=== PATIENT | female | born 1990 | race Two or more races ===

== ENCOUNTER 2016-06-03 16:52 | Emergency (ER) | payer MEDICAID ==
[~2016-06-03] VITALS: Ht 157.5 cm; Wt 68.0 kg
[2016-06-03 19:56] VITALS: BP 120/83
== END 2016-06-03 20:02 | disposition home or self-care (01) ==
LOC: ER 17:07
DX: J02.9 Acute pharyngitis, unspecified (principal)

== ENCOUNTER 2020-02-08 08:19 | Inpatient (IN) | payer MEDICAID, OTHER ==
[~2020-02-08] VITALS: Ht 157.5 cm; Wt 82.5 kg
[2020-02-08] MEDS ORDERED: MORPHINE SULFATE 4 MG/ML SYR/VIAL IV ONE (08:30)
[2020-02-08] MEDS ORDERED: SODIUM CHLORIDE 0.9% 1,000 ML IV ONE ×2 (08:30→14:30)
[2020-02-08] MEDS ORDERED: SODIUM CHLORIDE 0.9% 1,000 ML IVB ONE (08:30)
[2020-02-08] MEDS ORDERED: ONDANSETRON HCL 4 MG/2 ML VIAL IV ONE (08:30)
[2020-02-08 09:00] LABS: Basophils # (auto) 0 10 ^3/uL (0-0.2); Basophils % (auto) 0.2 % (0.0-2.0); Eosinophils # (auto) 0 10 ^3/uL (0-0.8); Hematocrit 43.8 % (36.0-46.0); Hemoglobin 14.9 g/dL (12.2-16.2); Lymphocytes # (auto) 0.6 10 ^3/uL (0.4-5.4); Lymphocytes % (auto) 3.1 % (10.0-50.0); Mean Corpuscular Hemoglobin 30.5 pg (28.0-32.0); Mean Corpuscular Volume 89.7 fL (80.0-100.0); Monocytes # (auto) 0.5 10 ^3/uL (0-1.3); Neutrophils # (auto) 16.8 10 ^3/uL (1.6-8.6); Neutrophils % (auto) 93.7 % (37.0-80.0); Platelet Count (auto) 345 10^3/uL (140-450); Red Blood Cells 4.88 10^6/uL (4.0-5.20); Red Cell Distribution Width 13.4 % (11.8-14.3)
[2020-02-08 09:15] LABS: Albumin 4.3 g/dL (3.4-5.0); Calcium 9.2 mg/dL (8.5-10.1); Potassium 3.8 mmol/L (3.5-5.1)
[2020-02-08 09:18] LABS: BUN/Creatinine Ratio 12.5; Bilirubin, Total 0.4 mg/dL (0.2-1.0); Total Protein 8.5 g/dL (6.4-8.2)
[2020-02-08 09:24] LABS: Lactic Acid w/Reflex 3.9 mmol/L (0.4-2.0)
[2020-02-08] MEDS ORDERED: cefTRIAXone 1GM/50ML D5W 50 ML IV ONE (11:30)
[2020-02-08] MEDS ORDERED: metroNIDAZOLE 500MG/100ML 100 ML IV ONE (11:30)
[2020-02-08] MEDS ORDERED: NITROGLYCERIN 0.4 MG SL TAB SL PRN ×2 (13:45→15:15)
[2020-02-08] MEDS ORDERED: MORPHINE SULF INJ 2 MG/ML SYRINGE 1ML IV PRN ×2 (13:45→15:15)
[2020-02-08] MEDS ORDERED: GOLYTELY 4L KIT PO ONE (14:15)
[2020-02-08] MEDS: SODIUM CHLORIDE 0.9% 1,000 ML IV SCH (14:30)
[2020-02-08] MEDS ORDERED: HYDROcodone-ACET 5/325MG TAB PO PRN (15:15)
[2020-02-08] MEDS ORDERED: DOCUSATE SOD 100 MG CAP PO PRN (15:15)
[2020-02-08] MEDS ORDERED: ONDANSETRON HCL 4 MG/2 ML VIAL IV PRN (15:15)
[2020-02-08] MEDS ORDERED: ACETAMINOPHEN 325 MG TAB PO PRN (15:15)
[2020-02-08] MEDS ORDERED: ALUM & MAG HYDROX-SIMETH LIQ(MAALOX) 30 ML PO PRN (15:15)
[2020-02-08] MEDS ORDERED: LORazepam 0.5 MG TAB PO PRN (15:15)
[2020-02-08 15:29] LABS: INR 1.03 (0.9-1.15)
[2020-02-08 16:30] LABS: Cholesterol 205 mg/dL (< 200); HDL Cholesterol 67 mg/dL (40-59); LDL Cholesterol 121 mg/dL (< 100); Triglycerides 76 mg/dL (< 150)
[2020-02-08] MEDS ORDERED: ERGO1CAP23 PO (16:39)
[2020-02-08] MEDS ORDERED: [UNRECOGNIZED DRUG - CODE] VG (16:39)
[2020-02-08] MEDS ORDERED: RIBO100T8 PO (16:39)
[2020-02-08] MEDS ORDERED: GABA100C9 PO (16:39)
[2020-02-08 20:32] VITALS: BP 132/87
[2020-02-08 22:00] VITALS: BP 132/87
[2020-02-08] MEDS: metroNIDAZOLE 500MG/100ML 100 ML IV SCH (22:58)
[2020-02-08] MEDS: MORPHINE SULF INJ 2 MG/ML SYRINGE 1ML IV PRN (23:03)
[2020-02-08 23:58] LABS: Urine Amorphous Crystal MOD /hpf (None Seen); Urine Bacteria NONE SEEN /hpf (None Seen); Urine Blood 1+ /uL (Negative); Urine Mucus FEW (None Seen); Urine Specific Gravity 1.033 (1.001-1.035); Urine WBC 59 /hpf (0 - 5)
[2020-02-09 00:20] LABS: Amphetamine Screen, Urine NEGATIVE (NEGATIVE); Barbiturate Scree,Urine NEGATIVE (NEGATIVE); Benzodiazephine Screen, Urine NEGATIVE (NEGATIVE); Cannabinoid Screen, Urine NEGATIVE (NEGATIVE); Cocaine Screen, Urine NEGATIVE (NEGATIVE); Opiate Scree,Urine NEGATIVE (NEGATIVE); Phencyclidine Screen, Urine NEGATIVE (NEGATIVE)
[2020-02-09] MEDS: SODIUM CHLORIDE 0.9% 1,000 ML IV SCH ×2 (02:51→17:10)
[2020-02-09] MEDS ORDERED: GOLYTELY 4L KIT PO ONE (04:00)
[2020-02-09 05:00] VITALS: BP 125/67
[2020-02-09] MEDS: metroNIDAZOLE 500MG/100ML 100 ML IV SCH ×3 (05:40→22:00)
[2020-02-09] MEDS: MORPHINE SULF INJ 2 MG/ML SYRINGE 1ML IV PRN ×2 (07:31→21:44)
[2020-02-09] MEDS ORDERED: FLUMAZENIL 0.1 MG/ML INJ 10ML MDV IV ONE (08:16)
[2020-02-09] MEDS ORDERED: LIDOCAINE VISCOUS 2% 15ML UD ONE (08:16)
[2020-02-09] MEDS ORDERED: NALOXONE HCL 0.4 MG/ML VIAL ONE (08:16)
[2020-02-09] MEDS ORDERED: SODIUM CHLORIDE LOCK 10 ML ONE (08:16)
[2020-02-09] MEDS ORDERED: diphenhdrAMINE HCL 50 MG/1 ML VL ONE (08:17)
[2020-02-09] MEDS: MIDAZOLAM HCL 5 MG/ML-1ML VIAL ONE ×3 (08:38→08:48)
[2020-02-09] MEDS: fentaNYL CITRATE 100 MCG/2 ML VL ONE ×2 (08:38→08:41)
[2020-02-09] MEDS ORDERED: MIDAZOLAM HCL 5 MG/ML-1ML VIAL ONE (08:49)
[2020-02-09] MEDS ORDERED: fentaNYL CITRATE 100 MCG/2 ML VL ONE (08:50)
[2020-02-09 09:13] VITALS: BP 104/55
[2020-02-09] MEDS ORDERED: CEFTRIAXONE SODIUM 2 GM in D5W 5% 50 ML IV SCH (10:00)
[2020-02-09 13:00] VITALS: BP 105/76
[2020-02-09] MEDS: PANTOPRAZOLE 40 MG TAB PO SCH ×2 (14:16→22:00)
[2020-02-09 17:00] VITALS: BP 106/58
[2020-02-09 20:46] VITALS: BP 114/71
== END 2020-02-10 01:54 | disposition short-term general hospital (02) | DRG 872 ==
LOC: ER 08:19 → EDBD 08:19 → TELE 08:20 → TELE-WESTW 20:00
PROVIDERS: ADMIT Hospitalist; ATTEND Internal Medicine Nephrology
PROC: 0DB68ZX Excision of Stomach, Via Natural or Artificial Opening Endoscopic, Diagnostic (ICD-10-PCS; principal; 2020-02-09 08:35)
PROC: 0DBM8ZX Excision of Descending Colon, Via Natural or Artificial Opening Endoscopic, Diagnostic (ICD-10-PCS; 2020-02-09 08:35)
DX: A41.9 Sepsis, unspecified organism (principal); E86.0 Dehydration; K29.70 Gastritis, unspecified, without bleeding; R65.20 Severe sepsis without septic shock; E66.9 Obesity, unspecified; F12.90 Cannabis use, unspecified, uncomplicated; K52.9 Noninfective gastroenteritis and colitis, unspecified; Z82.49 Family history of ischemic heart disease and other diseases of the circulatory system; Z68.33 Body mass index [BMI] 33.0-33.9, adult; Z20.828 Contact with and (suspected) exposure to other viral communicable diseases
CPT/HCPCS: 36415; 71045; 74176; 80053; 80061; 80307; 81001; 83036; 83605; 83690; 84484; 84702; 85025; 85610; 87040; 87045; 87086; 87427; 93005; 96361; 96365; 96368; 96375; 99291; G0378; J0696; J2250; J2405; J3490; J7060

== ENCOUNTER 2020-08-10 05:11 | Emergency (ER) | payer OTHER ==
[~2020-08-10] VITALS: Ht 157.5 cm; Wt 77.6 kg
[~2020-08-10 05:11] MED LIST: ERGO1CAP23 PO; GABA100C9 PO; RIBO100T8 PO; [UNRECOGNIZED DRUG - CODE] VG
[2020-08-10] MEDS ORDERED: KETOROLAC TROMETH 30 MG/ML 1ML VIAL IV ONE (06:30)
[2020-08-10] MEDS ORDERED: SODIUM CHLORIDE 0.9% 1,000 ML IV ONE (06:30)
[2020-08-10 07:23] LABS: Urine Bacteria FEW /hpf (None Seen); Urine Blood 1+ /uL (Negative); Urine Specific Gravity 1.003 (1.001-1.035); Urine WBC 1 /hpf (0 - 5)
[2020-08-10] MEDS ORDERED: ONDANSETRON HCL 4 MG/2 ML VIAL ONE (07:39)
[2020-08-10] MEDS ORDERED: ONDANSETRON HCL 4 MG/2 ML VIAL IV ONE (07:45)
[2020-08-10 07:55] LABS: Amphetamine Screen, Urine NEGATIVE (NEGATIVE); Barbiturate Scree,Urine NEGATIVE (NEGATIVE); Benzodiazephine Screen, Urine NEGATIVE (NEGATIVE); Cannabinoid Screen, Urine POSITIVE (NEGATIVE); Cocaine Screen, Urine NEGATIVE (NEGATIVE); Phencyclidine Screen, Urine NEGATIVE (NEGATIVE)
[2020-08-10 08:03] LABS: Opiate Scree,Urine NEGATIVE (NEGATIVE)
[2020-08-10 08:14] LABS: Basophils # (auto) 0 10 ^3/uL (0-0.2); Basophils % (auto) 0.3 % (0.0-2.0); Eosinophils # (auto) 0.1 10 ^3/uL (0-0.8); Eosinophils % (auto) 1.3 % (0.0-7.0); Hematocrit 44.8 % (36.0-46.0); Hemoglobin 15.1 g/dL (12.2-16.2); Lymphocytes # (auto) 1.8 10 ^3/uL (0.4-5.4); Lymphocytes % (auto) 21.2 % (10.0-50.0); Mean Corpuscular Hemoglobin 30.1 pg (28.0-32.0); Mean Corpuscular Hgb Conc. 33.8 g/dL (32.0-36.0); Monocytes # (auto) 0.6 10 ^3/uL (0-1.3); Monocytes % (auto) 6.7 % (0.0-12.0); Neutrophils % (auto) 70.5 % (37.0-80.0); Nucleated Red Blood Cells % 0.1 %; Platelet Count (auto) 339 10^3/uL (140-450); Red Blood Cells 5.03 10^6/uL (4.0-5.20); Red Cell Distribution Width 13.2 % (11.8-14.3); White Blood Cell 8.6 10^3/uL (4.4-10.8)
[2020-08-10 08:52] LABS: Albumin 3.9 g/dL (3.4-5.0); Calcium 8.7 mg/dL (8.5-10.1)
[2020-08-10 08:56] LABS: BUN/Creatinine Ratio 21.4; Bilirubin, Total 0.6 mg/dL (0.2-1.0); Total Protein 7.8 g/dL (6.4-8.2)
[2020-08-10 09:13] VITALS: BP 111/83
== END 2020-08-10 09:23 | disposition home or self-care (01) ==
LOC: ER 05:11
DX: R10.32 Left lower quadrant pain (principal); F12.90 Cannabis use, unspecified, uncomplicated; Z79.899 Other long term (current) drug therapy
CPT/HCPCS: 36415; 74176; 80053; 80307; 81001; 81025; 85025; 96361; 96374; 96375; 99284; J1885; J2405; J7030

== ENCOUNTER 2020-10-07 18:25 | Emergency (ER) | payer OTHER ==
[~2020-10-07] VITALS: Ht 157.5 cm; Wt 77.1 kg
[2020-10-07] MEDS ORDERED: PANTOPRAZOLE 40 MG/10 ML VIAL INJ IV ONE (19:00)
[2020-10-07] MEDS ORDERED: SODIUM CHLORIDE 0.9% 1,000 ML IVB ONE (19:00)
[2020-10-07] MEDS ORDERED: MORPHINE SULFATE 4 MG/ML SYR/VIAL IV ONE (19:00)
[2020-10-07 19:35] LABS: Basophils # (auto) 0 10 ^3/uL (0-0.2); Basophils % (auto) 0.2 % (0.0-2.0); Eosinophils # (auto) 0 10 ^3/uL (0-0.8); Eosinophils % (auto) 0.2 % (0.0-7.0); Hematocrit 46.8 % (36.0-46.0); Hemoglobin 16.2 g/dL (12.2-16.2); Lymphocytes # (auto) 0.3 10 ^3/uL (0.4-5.4); Lymphocytes % (auto) 2.5 % (10.0-50.0); Mean Corpuscular Hemoglobin 30.7 pg (28.0-32.0); Mean Corpuscular Hgb Conc. 34.5 g/dL (32.0-36.0); Mean Corpuscular Volume 88.8 fL (80.0-100.0); Monocytes # (auto) 0.5 10 ^3/uL (0-1.3); Monocytes % (auto) 3.7 % (0.0-12.0); Neutrophils # (auto) 12.8 10 ^3/uL (1.6-8.6); Neutrophils % (auto) 93.4 % (37.0-80.0); Platelet Count (auto) 331 10^3/uL (140-450); Red Blood Cells 5.27 10^6/uL (4.0-5.20); Red Cell Distribution Width 13.4 % (11.8-14.3); White Blood Cell 13.7 10^3/uL (4.4-10.8)
[2020-10-07 19:43] LABS: Urine Bacteria FEW /hpf (None Seen); Urine Blood 1+ /uL (Negative); Urine Mucus FEW (None Seen); Urine Specific Gravity 1.024 (1.001-1.035); Urine WBC <1 /hpf (0 - 5)
[2020-10-07 19:56] LABS: Albumin 4.2 g/dL (3.4-5.0); Anion Gap 6 (5-15); Blood Urea Nitrogen 9 mg/dL (7-18); Calcium 9.3 mg/dL (8.5-10.1); Carbon Dioxide 24 mmol/L (21-32); Chloride 108 mmol/L (98-107); Glucose 102 mg/dL (74-106); Potassium 4.6 mmol/L (3.5-5.1); Sodium 138 mmol/L (136-145)
[2020-10-07 19:56] LABS: Alcohol, Urine < 3.0 mg/dL (0-10); Amphetamine Screen, Urine NEGATIVE (NEGATIVE); Barbiturate Scree,Urine NEGATIVE (NEGATIVE); Benzodiazephine Screen, Urine NEGATIVE (NEGATIVE); Cannabinoid Screen, Urine POSITIVE (NEGATIVE); Cocaine Screen, Urine NEGATIVE (NEGATIVE); Opiate Scree,Urine NEGATIVE (NEGATIVE); Phencyclidine Screen, Urine NEGATIVE (NEGATIVE)
[2020-10-07 19:59] LABS: Alanine Aminotransferase 22 U/L (13-56); Blood Alcohol < 3.0 mg/dL (0-5); GFR African American 130 mL/min; GFR Non-African American 108 mL/min; Lipase 57 U/L (73-393)
[2020-10-07 20:02] LABS: Alkaline Phosphatase 103 U/L (45-117); Aspartate Aminotransferase 12 U/L (15-37); Bilirubin, Total 0.9 mg/dL (0.2-1.0); Total Protein 8.5 g/dL (6.4-8.2)
[2020-10-07 21:56] VITALS: BP 107/65
== END 2020-10-07 21:57 | disposition home or self-care (01) ==
LOC: ER 18:25
DX: R11.2 Nausea with vomiting, unspecified (principal); F12.10 Cannabis abuse, uncomplicated
CPT/HCPCS: 36415; 80053; 80307; 80320; 81001; 81025; 83690; 85025; 96361; 96374; 96375; 99284; C9113; J2270; J7030

== ENCOUNTER 2020-12-08 20:34 | Emergency (ER) | payer OTHER ==
[~2020-12-08] VITALS: Ht 157.5 cm; Wt 74.8 kg
[2020-12-08] MEDS ORDERED: SODIUM CHLORIDE 0.9% 1,000 ML IV ONE (22:00)
[2020-12-08 22:22] LABS: Basophils # (auto) 0 10 ^3/uL (0-0.2); Basophils % (auto) 0.4 % (0.0-2.0); Eosinophils # (auto) 0.1 10 ^3/uL (0-0.8); Eosinophils % (auto) 0.7 % (0.0-7.0); Hemoglobin 15.4 g/dL (12.2-16.2); Lymphocytes # (auto) 2.4 10 ^3/uL (0.4-5.4); Lymphocytes % (auto) 31.5 % (10.0-50.0); Mean Corpuscular Hemoglobin 30.6 pg (28.0-32.0); Mean Corpuscular Hgb Conc. 34.2 g/dL (32.0-36.0); Mean Corpuscular Volume 89.4 fL (80.0-100.0); Monocytes # (auto) 0.5 10 ^3/uL (0-1.3); Monocytes % (auto) 7.1 % (0.0-12.0); Neutrophils # (auto) 4.6 10 ^3/uL (1.6-8.6); Neutrophils % (auto) 60.3 % (37.0-80.0); Nucleated Red Blood Cells % 0.1 %; Red Blood Cells 5.03 10^6/uL (4.0-5.20); Red Cell Distribution Width 13.1 % (11.8-14.3); White Blood Cell 7.6 10^3/uL (4.4-10.8)
[2020-12-08 22:43] LABS: Potassium 4.2 mmol/L (3.5-5.1)
[2020-12-08 22:52] LABS: Albumin 3.9 g/dL (3.4-5.0); BUN/Creatinine Ratio 15.5; Bilirubin, Total 0.4 mg/dL (0.2-1.0); Calcium 9.3 mg/dL (8.5-10.1); Total Protein 8.4 g/dL (6.4-8.2)
[2020-12-08 23:30] VITALS: BP 120/79
[2020-12-09 03:26] LABS: Urine Bacteria FEW /hpf (None Seen); Urine Blood Negative /uL (Negative); Urine Mucus FEW (None Seen); Urine Specific Gravity 1.026 (1.001-1.035); Urine WBC 2 /hpf (0 - 5)
== END 2020-12-08 23:34 | disposition home or self-care (01) ==
LOC: ER 20:34
DX: R19.7 Diarrhea, unspecified (principal); R55 Syncope and collapse; J45.909 Unspecified asthma, uncomplicated; Z79.899 Other long term (current) drug therapy
CPT/HCPCS: 36415; 80053; 81001; 81025; 85025; 93005; 96360; 99284; J7030

== ENCOUNTER 2021-07-31 15:31 | Emergency (ER) | payer OTHER ==
[~2021-07-31] VITALS: Ht 157.5 cm; Wt 77.1 kg
[2021-07-31] MEDS ORDERED: SODIUM CHLORIDE 0.9% 1,000 ML IV ONE (16:00)
[2021-07-31] MEDS ORDERED: ONDANSETRON HCL 4 MG/2 ML VIAL IV ONE (16:00)
[2021-07-31 16:17] LABS: Urine Bacteria NONE SEEN /hpf (None Seen); Urine Blood Negative /uL (Negative); Urine Specific Gravity 1.009 (1.001-1.035); Urine WBC <1 /hpf (0 - 5)
[2021-07-31 18:19] LABS: Basophils # (auto) 0 10 ^3/uL (0-0.2); Basophils % (auto) 0.5 % (0.0-2.0); Eosinophils # (auto) 0 10 ^3/uL (0-0.8); Eosinophils % (auto) 0.9 % (0.0-7.0); Hematocrit 42.5 % (36.0-46.0); Hemoglobin 14.5 g/dL (12.2-16.2); Lymphocytes # (auto) 1.5 10 ^3/uL (0.4-5.4); Lymphocytes % (auto) 28.2 % (10.0-50.0); Mean Corpuscular Hemoglobin 30.3 pg (28.0-32.0); Monocytes # (auto) 0.4 10 ^3/uL (0-1.3); Monocytes % (auto) 7.4 % (0.0-12.0); Neutrophils # (auto) 3.4 10 ^3/uL (1.6-8.6); Nucleated Red Blood Cells % 0.1 %; Red Blood Cells 4.77 10^6/uL (4.0-5.20); Red Cell Distribution Width 13.3 % (11.8-14.3); White Blood Cell 5.3 10^3/uL (4.4-10.8)
[2021-07-31 18:33] LABS: Albumin 3.7 g/dL (3.4-5.0); BUN/Creatinine Ratio 12.1; Calcium 8.2 mg/dL (8.5-10.1)
[2021-07-31 18:36] LABS: Bilirubin, Total 0.5 mg/dL (0.2-1.0); Total Protein 7.1 g/dL (6.4-8.2)
[2021-07-31 19:07] VITALS: BP 136/87
== END 2021-07-31 19:08 | disposition home or self-care (01) ==
LOC: ER 15:31
DX: R10.9 Unspecified abdominal pain (principal); J45.909 Unspecified asthma, uncomplicated
CPT/HCPCS: 36415; 80053; 81001; 81025; 85025; 96361; 96374; 99283; J2405; J7030

== ENCOUNTER 2022-08-17 06:15 | Emergency (ER) | payer OTHER ==
[~2022-08-17] VITALS: Ht 157.5 cm; Wt 77.0 kg
[2022-08-17 07:00] LABS: Basophils # (auto) 0 10 ^3/uL (0-0.2); Basophils % (auto) 0.4 % (0.0-2.0); Eosinophils # (auto) 0 10 ^3/uL (0-0.8); Eosinophils % (auto) 0.1 % (0.0-7.0); Hematocrit 46.3 % (36.0-46.0); Hemoglobin 16.2 g/dL (12.2-16.2); Lymphocytes # (auto) 2.2 10 ^3/uL (0.4-5.4); Lymphocytes % (auto) 24.6 % (10.0-50.0); Mean Corpuscular Hemoglobin 30.5 pg (28.0-32.0); Mean Corpuscular Volume 87.1 fL (80.0-100.0); Monocytes # (auto) 0.3 10 ^3/uL (0-1.3); Monocytes % (auto) 3.7 % (0.0-12.0); Neutrophils # (auto) 6.4 10 ^3/uL (1.6-8.6); Neutrophils % (auto) 71.2 % (37.0-80.0); Nucleated Red Blood Cells % 0.1 %; Red Blood Cells 5.31 10^6/uL (4.0-5.20)
[2022-08-17] MEDS ORDERED: SODIUM CHLORIDE 0.9% 1,000 ML IV ONE ×2 (07:00)
[2022-08-17] MEDS ORDERED: ONDANSETRON HCL 4 MG/2 ML VIAL IV ONE (07:00)
[2022-08-17 07:25] LABS: Albumin 4.1 g/dL (3.4-5.0); Calcium 8.9 mg/dL (8.5-10.1); Potassium 3.6 mmol/L (3.5-5.1)
[2022-08-17 07:30] LABS: BUN/Creatinine Ratio 9.5 (10.0-20.0); Bilirubin, Total 0.5 mg/dL (0.2-1.0); Total Protein 8.4 g/dL (6.4-8.2)
[2022-08-17 08:20] LABS: Urine Bacteria NONE SEEN /hpf (None Seen); Urine Blood Negative /uL (Negative); Urine Specific Gravity 1.011 (1.001-1.035); Urine WBC 1 /hpf (0 - 5)
[2022-08-17 08:26] LABS: Amphetamine Screen, Urine NEGATIVE (NEGATIVE); Barbiturate Scree,Urine NEGATIVE (NEGATIVE); Benzodiazephine Screen, Urine NEGATIVE (NEGATIVE); Cannabinoid Screen, Urine POSITIVE (NEGATIVE); Cocaine Screen, Urine NEGATIVE (NEGATIVE)
[2022-08-17 08:32] LABS: Opiate Scree,Urine NEGATIVE (NEGATIVE); Phencyclidine Screen, Urine NEGATIVE (NEGATIVE)
[2022-08-17] MEDS ORDERED: KETOROLAC TROMETH 30 MG/ML 1ML VIAL IV ONE (08:45)
[2022-08-17] MEDS ORDERED: THIAMINE 100mg/ml INJ (200mg/2ml VIAL) IV ONE (09:45)
[2022-08-17] MEDS ORDERED: PROMETHAZINE HCL 25 MG/ML 1ML IV ONE (10:00)
[2022-08-17] MEDS ORDERED: GADOTERATE MEG 10 MMOL/20ml INJ (0.5MMOL/ml) IV ONE (10:12)
[2022-08-17] MEDS ORDERED: ONDA-144 PO (12:57)
[2022-08-17 13:10] VITALS: BP 125/78
== END 2022-08-17 13:22 | disposition home or self-care (01) ==
LOC: ER 06:15 → EDBD 06:15 → ER 13:22
DX: F10.10 Alcohol abuse, uncomplicated (principal); J45.909 Unspecified asthma, uncomplicated; Z79.899 Other long term (current) drug therapy
CPT/HCPCS: 36415; 70450; 80053; 80307; 80320; 81001; 81025; 83690; 85025; 96361; 96374; 96375; 99285; A9575; J1885; J2405; J2550; J3411; J7030